=== PATIENT | male | born 1940 | race Caucasian/White ===

== ENCOUNTER → 2016-09-06 | Outpatient (CLI) | payer OTHER ==
[~2016-09-06] MED LIST: ASPIRINEC PO; CRESTOR PO; GLYNASE PO; KCL PO; LANTUS100 U/ML SUBQ; LASIX PO; LISINOPRIL PO; METFORMIN PO; NORVASC PO
--- NOTE | ~2016-09-06 | CR150 ---
[facility] A Service of [facility] RADIOLOGY TEXT RESULTS PATIENT: MARÍA HERNANDEZ LOCATION: [facility] : 38 UNIT #: [id number] AGE: [address]: IRENA MORRIS SEX: M ORDER DR: [id number] [facility] [address] [place], [place] [address] [id number] O MR#: [id number] Acc #: [id number] NAME: MARÍA HERNANDEZ : 1940 SEX: M STUDY DATE/TIME: 09/06/2016 13:22 UNIT: [facility] ROOM: STUDY DESCRIPTION: CR Hip Min 2 Views Lt Attending Physician: Irena Morris M.D. Referring Physician: Irena Morris M.D. Primary Care Physician: Zeynep Day M.D. MEDICAL IMAGING REPORT This report is preliminary unless electronic signature is present EXAM Left hip. INDICATION Left hip pain. Left hip arthralgia. 1-1/2 month duration. FINDINGS AP view of the pelvis and frogleg lateral view of the left hip without comparison. There is mild superior joint space narrowing of both hips. There is some mild osteophyte formation. No fracture or dislocation. IMPRESSION Mild bilateral hip osteoarthritis. Dictated by... Geovanny Ortiz M.D. THIS IS AN ELECTRONICALLY VERIFIED REPORT Geovanny Ortiz M.D. at 09/07/2016 8:08 AM TWIN/sae TD: 09/06/2016 16:14 JOB #: [id number] MEDICAL IMAGING REPORT Page 1 of 1 COPY
== END | disposition home or self-care (01) ==
LOC: CRAD 12:40
DX: M25.552 Pain in left hip (principal); M16.0 Bilateral primary osteoarthritis of hip
CPT/HCPCS: 73502